=== PATIENT | male | born 1945 | race African-American/Black ===

== ENCOUNTER 2024-12-26 21:46 | Inpatient (IN) | payer OTHER ==
[~2024-12-26] VITALS: Ht 185.4 cm; Wt 80.3 kg
[2024-12-26 22:26] LABS: BASOPHILS % 0.7 % (0.0-2.0); EOSINOPHILS % 2.8 % (0.0-5.0); HEMATOCRIT. 38.1 % (42.0-52.0); HEMOGLOBIN. 12.3 g/dL (14.0-18.0); LYMPHOCYTES % 27.9 % (20.0-50.0); MEAN CORPUSCULAR HEMOGLOBIN 28.7 pg (28.0-32.0); MEAN CORPUSCULAR HGB CONC 32.4 g/dL (31.0-37.0); MEAN CORPUSCULAR VOLUME 88.7 fL (80.0-94.0); MEAN PLATELET VOLUME 8.4 fl (7.4-10.4); MONOCYTES % 10.1 % (2.0-8.0); NEUTROPHILS % 58.5 % (40.0-76.0); PLATELET 163 x1000/uL (130-400); RED CELL DISTRIBUTION WIDTH 14.5 % (11.6-14.6)
[2024-12-26 22:34] LABS: POTASSIUM 4.8 mEq/L (3.5-5.1)
[2024-12-26 22:36] LABS: CALCIUM 9.4 mg/dL (8.7-10.4)
[2024-12-26 22:40] LABS: CREATININE 2.1 mg/dL (0.6-1.3)
[2024-12-26] MEDS: METHYLPREDNISOLONE SOD SUCC 125MG/2ML (ACT-O-VIAL) IV ONE (23:16)
[2024-12-26] MEDS: SODIUM CHLORIDE 0.9% 500 ML IV ONE (23:16)
[2024-12-26 23:24] LABS: LACTIC ACID 2.5 mmol/L (0.4-2.0)
[2024-12-26] MEDS: SODIUM CHLORIDE 0.9% 1,000 ML IV ONE (23:40)
[2024-12-26] MEDS: CEFTRIAXONE 1GM/50ML 50 ML IV ONE (23:50)
[2024-12-27] VITALS (7 sets, daily range): BP systolic 100–155; BP diastolic 42–105; PULSE 62–78; RESP 18–20; TEMP 36.5–36.9; O2SAT 96–100
[2024-12-27] MEDS: SODIUM CHLORIDE 0.9% 500 ML IV ONE (01:02)
[2024-12-27 01:04] LABS: CLARITY URINE CLEAR (CLEAR); COLOR URINE YELLOW (YELLOW); GLUCOSE URINE NEGATIVE (NEGATIVE); KETONES URINE NEGATIVE (NEGATIVE); LEUKOCYTE ESTERASE URINE TRACE (NEGATIVE); NITRITE URINE NEGATIVE (NEGATIVE); OCCULT BLOOD URINE 2+ (NEGATIVE); PH URINE 6.5 (4.5-8.0); PROTEIN URINE 1+ (NEGATIVE); SPECIFIC GRAVITY URINE 1.011 (1.005-1.030)
[2024-12-27 01:31] LABS: BACTERIA URINE 1+; SQUAMOUS EPITHELIAL CELL URINE FEW /lpf (RARE/1+)
[2024-12-27 01:32] LABS: WBC URINE 0-2 /hpf (0-2)
[2024-12-27] MEDS: IPRATROPIUM/ALBUTEROL 0.5-3(2.5)MG/3ML NEB ONE (04:18)
[2024-12-27] MEDS: IPRATROPIUM/ALBUTEROL 0.5-3(2.5)MG/3ML NEB HHN ONE (04:18)
[2024-12-27] MEDS ORDERED: MAGNESIUM/ALUMINUM HYDROXIDE/SIMETHICONE 30ML UDC PO PRN (07:15)
[2024-12-27] MEDS ORDERED: IPRATROPIUM/ALBUTEROL 0.5-3(2.5)MG/3ML NEB NEB PRN (07:15)
[2024-12-27] MEDS ORDERED: NA PHOS,M-B/NA PHOS,DI-BA ENEMA 118ML PR PRN (07:15)
[2024-12-27] MEDS ORDERED: CLONIDINE 0.1MG TABLET PO PRN (07:15)
[2024-12-27] MEDS ORDERED: ONDANSETRON HCL 4MG/2ML INJ IV PRN (07:15)
[2024-12-27] MEDS ORDERED: GUAIFENESIN 200MG/10ML SUGAR FREE UDC PO PRN (07:15)
[2024-12-27] MEDS ORDERED: ACETAMINOPHEN 325MG TABLET PO PRN (07:15)
[2024-12-27] MEDS ORDERED: DIPHENHYDRAMINE 50MG/ML VIAL IV PRN (07:15)
[2024-12-27] MEDS ORDERED: DOCUSATE SODIUM 100MG CAPSULE PO PRN (07:15)
[2024-12-27] MEDS: METHYLPREDNISOLONE SOD SUCC 40MG/ML (ACT-O-VIAL) IV SCH (07:16)
[2024-12-27] MEDS ORDERED: AZITHROMYCIN 500MG/250ML 250 ML IV SCH (08:00)
[2024-12-27] MEDS: AMLODIPINE 10MG TABLET PO SCH (10:44)
[2024-12-27] MEDS: ASPIRIN 81MG EC TABLET PO SCH (10:44)
[2024-12-27] MEDS: LISINOPRIL 10MG TABLET PO SCH (10:44)
[2024-12-27] MEDS: AZITHROMYCIN 500MG/250ML 250 ML IV SCH (10:44)
[2024-12-27] MEDS: SODIUM CHLORIDE 0.45% 1,000 ML IV SCH (10:45)
[2024-12-27 15:53] LABS: TROPONIN I HIGH SENSITIVITY 18 ng/L (3.0-53)
[2024-12-27] MEDS ORDERED: BRIM15DR8 EACHEYE (18:00)
[2024-12-27] MEDS ORDERED: DORZ1DRO7 OP (18:05)
[2024-12-27] MEDS ORDERED: ROSU40TA PO (18:06)
[2024-12-27] MEDS: IPRATROPIUM/ALBUTEROL 0.5-3(2.5)MG/3ML NEB HHN SCH (21:00)
[2024-12-27] MEDS ORDERED: BRIMONIDINE 0.2% OPHTH DROPS 5ML EACHEYE SCH (22:15)
[2024-12-28] VITALS: BP 134/60; PULSE 74; RESP 21; TEMP 36.9; O2SAT 98
[2024-12-28 00:34] LABS: TROPONIN I HIGH SENSITIVITY 21 ng/L (3.0-53)
[2024-12-28] MEDS: BRIMONIDINE 0.2% OPHTH DROPS 5ML EACHEYE SCH (01:14)
[2024-12-28 04:00] VITALS: BP 111/51; PULSE 71; RESP 20; TEMP 36.9; O2SAT 98
[2024-12-28 07:13] LABS: POTASSIUM 4.5 mEq/L (3.5-5.1)
[2024-12-28 07:15] LABS: CALCIUM 8.7 mg/dL (8.7-10.4)
[2024-12-28 07:19] LABS: CREATININE 1.5 mg/dL (0.6-1.3)
[2024-12-28 07:21] LABS: BASOPHILS % 0.1 % (0.0-2.0); HEMATOCRIT. 33.3 % (42.0-52.0); HEMOGLOBIN. 11.1 g/dL (14.0-18.0); LYMPHOCYTES % 8.3 % (20.0-50.0); MEAN CORPUSCULAR HEMOGLOBIN 28.8 pg (28.0-32.0); MEAN CORPUSCULAR HGB CONC 33.3 g/dL (31.0-37.0); MEAN CORPUSCULAR VOLUME 86.6 fL (80.0-94.0); MEAN PLATELET VOLUME 9.5 fl (7.4-10.4); MONOCYTES % 3.9 % (2.0-8.0); NEUTROPHILS % 87.7 % (40.0-76.0); PLATELET 156 x1000/uL (130-400); RED BLOOD CELL COUNT 3.84 mill/uL (4.7-6.1); RED CELL DISTRIBUTION WIDTH 14.2 % (11.6-14.6); WHITE BLOOD COUNT 11.3 x1000/uL (4.5-11.0)
[2024-12-28 08:00] VITALS: BP 118/51; PULSE 70; RESP 18; TEMP 36.6; O2SAT 97
[2024-12-28 09:39] VITALS: PULSE 71; RESP 20; O2SAT 98
[2024-12-28 12:00] VITALS: BP 105/57; PULSE 68; RESP 18; TEMP 36.7; O2SAT 98
[2024-12-28 14:05] VITALS: BP 122/116; PULSE 71; TEMP 98.5; O2SAT 98
== END 2024-12-28 18:14 | disposition home or self-care (01) | DRG 312 ==
LOC: ER 22:01 → 8WST 12-27 04:31 → EDBEDREQ 12-27 04:33 → ENRESERV 12-27 05:27
PROVIDERS: ADMIT Internal Medicine; ATTEND Internal Medicine
DX: R55 Syncope and collapse (principal); N17.9 Acute kidney failure, unspecified; E87.20 Acidosis, unspecified; E86.0 Dehydration; N18.9 Chronic kidney disease, unspecified; I12.9 Hypertensive chronic kidney disease with stage 1 through stage 4 chronic kidney disease, or unspecified chronic kidney disease; Z79.899 Other long term (current) drug therapy
CPT/HCPCS: 36415; 71045; 80048; 81003; 83605; 83880; 84484; 85025; 93005; 94070; 94640; 94664; 98960; 99291; A4606; J0456; J0696; J2919; J7030; J7040